=== PATIENT | female | born 1975 | race Hispanic/Latino ===

== ENCOUNTER 2023-02-24 21:37 | Emergency (ER) | payer OTHER ==
[~2023-02-24] VITALS: Ht 160 cm; Wt 104.3 kg
[2023-02-24] MEDS ORDERED: MORPHINE 4 MG SYG IVP ONE (22:30)
[2023-02-24] MEDS ORDERED: 0.9%NACL 1000ML 1,000 ML IV ONE (22:30)
[2023-02-24] MEDS ORDERED: ONDANSETRON 4MG INJ IVP ONE (22:30)
[2023-02-24 22:44] LABS: BASOPHILS % (AUTO) 0.5 % (0.0-5.0); EOSINOPHILS % (AUTO) 2.9 % (0.0-8.0); HEMATOCRIT 40.5 % (36-48); LYMPHOCYTES % (AUTO) 23.5 % (21.0-51.0); MEAN CORPUSCULAR HGB CONC 33.3 g/dL (32.0-36.0); MONOCYTES % (AUTO) 7.1 % (3.0-13.0); NEUTROPHILS % (AUTO) 65.2 % (40.0-77.0); PLATELET COUNT (AUTO) 245 K/uL (130-400); RED CELL DISTRIBUTION WIDTH 12.8 % (11.0-15.5); WHITE BLOOD COUNT (AUTO) 7.6 K/uL (4.8-10.8)
[2023-02-24 22:54] LABS: APPEARANCE,URINE CLEAR (CLEAR); BILIRUBIN,URINE NEGATIVE (NEGATIVE); COLOR,URINE LIGHT-YELLOW (YELLOW); CREATININE 1.4 mg/dL (0.5-1.5); GLUCOSE, URINE (UA) NEGATIVE (NEGATIVE); KETONES,URINE NEGATIVE (NEGATIVE); LEUKOCYTE ESTERASE ,URINE 75 Leu/uL (NEGATIVE); NITRATE,URINE NEGATIVE (NEGATIVE); OCCULT BLOOD,URINE LARGE (NEGATIVE); PH,URINE 6.5 (5.0-8.0); POTASSIUM 3.6 mmol/L (3.5-5.1); PROTEIN,URINE 10 mg/dL (NEGATIVE); UROBILINOGEN,URINE 0.2 mg/dL (0.2-1.0)
[2023-02-24 23:02] LABS: BACTERIA,URINE RARE /HPF (None Seen); MUCUS,URINE RARE LPF (None Seen); RBC,URINE TNTC /HPF (0-1); SQUAMOUS EPITHELIAL CELL,UR RARE /HPF (0-2)
[2023-02-24 23:04] LABS: ALBUMIN 3.2 g/dL (3.5-5.0); TOTAL PROTEIN, SERUM 6.5 g/dL (6.0-8.3)
[2023-02-25] MEDS ORDERED: 0.9%NACL 1000ML 1,000 ML IV ONE
[2023-02-25] MEDS ORDERED: CEFTRIAXONE 2GM VIAL IVPB ONE
[2023-02-25] MEDS ORDERED: TAMS-1 PO (01:47)
[2023-02-25] MEDS ORDERED: FAMO-136 PO (01:48)
[2023-02-25] MEDS ORDERED: KETO10 PO (01:48)
[2023-02-25] MEDS ORDERED: METO-296 PO (01:48)
[2023-02-25 02:10] VITALS: BP 129/73
== END 2023-02-25 02:12 | disposition home or self-care (01) ==
LOC: EDBD 21:37 → EDH 21:37
DX: N13.2 Hydronephrosis with renal and ureteral calculous obstruction (principal)
CPT/HCPCS: 99285; 74176; 96375; 96361; 80053; 84702; 83690; 85025; 87088; 81001; 36415; 96365; 96366; J7030 ×2; J2405; J2270; J0696